=== PATIENT | female | born 1945 | race Caucasian/White ===

== ENCOUNTER 2018-08-11 12:13 | Observation (INO) | payer MEDICARE, OTHER ==
[2018-08-11] VITALS (21 sets, daily range): BP systolic 77–163; BP diastolic 50–86
[~2018-08-11] VITALS: Ht 160 cm; Wt 58.3 kg
--- NOTE | 2018-08-11 12:13 | NUR ---
ARRIVAL PATIENT TO ROOM 3, STATES THAT SHE WAS RIDING IN HER SISTER'S CAR AND SHE BLACKED OUT. PATIENT STATES SHE CHECKED HER BS AND IT WAS 73 AND DROPPING, SO SHE TOOK 2 ORAL GLUCOSES. PATIENT HAS BEEN HAVING HEAVINESS IN HER CHEST AND SOB ON AND OFF FOR A WEEK WELL A DULL ACHE IN HER LEFT ARM, PATIENT STATES THAT SHE HAS HAD A HEART CATH RECENTLY AND IT WAS NORMAL. ASSESSMENT COMPLETED, AWAITING MD PENNY, CONNECTED TO ALL MONITORS, LIFE INSURANCE UNDERWRITER IN PLACE.
[2018-08-11] MEDS ORDERED: NS 1000ML 1,000 ML IV STA (12:24)
--- NOTE | 2018-08-11 12:26 | PCM.EKG ---
[facility] Test Date: 2018-08-11 Test Time: 12:15:18 Pat Name: BRETT ORTIZ Department: Room: ICU5 Gender: F Distribution Coordinator: PRASAD : 1945 Requested By: RENY SMITH Order Number: [id number] Reading MD: Reny SMITH Measurements Intervals [place] Rate: 72 P: 83 CA: 144 QRS: 78 QRSD: 88 T: 65 QT: 430 QTc: 470 Interpretive Statements Normal sinus rhythm Right atrial enlargement Prolonged QT Abnormal ECG No previous ECG available for comparison Electronically Signed On 08-12-2018 16:39:34 CDT by Reny SMITH Please click the below link to view image of tracing.
[2018-08-11] MEDS ORDERED: ASPIRIN ONE (12:31)
[2018-08-11] MEDS ORDERED: NS 1000ML 1,000 ML ONE (12:31)
[2018-08-11 12:35] LABS: BASOPHIL % 0.7 % (0.0-0.2); EOSINOPHIL # 0.1 10^3/uL (0.0-0.2); EOSINOPHIL % 1.1 % (0.0-5.0); HEMOGLOBIN 11.5 g/dL (12.0-15.0); LYMPHOCYTES # 2.7 10^3/uL (1.0-4.8); LYMPHOCYTES % 43.4 % (24.0-44.0); MEAN CELL HGB 31.9 pg (26-34); MEAN CELL HGB CONCENTRATION 34.2 g/dL (33-37); MEAN CORP VOLUME 93.3 fL (78-100); MEAN PLATELET VOLUME 9.3 fL (7.8-11.0); MONOCYTES # 0.6 10^3/uL (0.3-0.8); MONOCYTES % 9.8 % (5.0-12.0); NEUTROPHIL # 2.7 10^3/uL (1.8-7.7); NEUTROPHILS % 44.8 % (41.0-85.0); RED CELL DISTRIBUTION WIDTH 11.4 % (11.5-14.5); WHITE BLOOD CELL 6.1 10^3/uL (4.5-11.0)
[2018-08-11] MEDS ORDERED: ASPIRIN PO STA (12:38)
--- NOTE | 2018-08-11 12:47 | NUR ---
CT PATIENT TO CT.
--- NOTE | 2018-08-11 12:53 | DIREP ---
PROCEDURE:CHEST 1 VIEW COMPARISON:None. INDICATIONS:Chest pain FINDINGS: LUNGS/PLEURA:No significant pulmonary parenchymal abnormalities. No effusions. Subtle patchy density at the right lung base is probably artifact of overlapping ribs. Bibasilar atelectasis. VASCULATURE:Normal. Unremarkable pulmonary vasculature. CARDIAC:Normal. No cardiac silhouette abnormality or cardiomegaly. MEDIASTINUM:Normal. No visible mass or adenopathy. BONES:Normal. No fracture or visible bony lesion. OTHER:Negative. CONCLUSION: Subtle patchy density at the right lung base is probably artifact of overlapping ribs. Bibasilar atelectasis. No other acute cardiopulmonary process. Dictated by: Washington Roche MD on 08/11/2018 at 12:51 PM
[2018-08-11 13:00] LABS: ALANINE AMINOTRANSFERASE(ML) 33 U/L (12-78); ALKALINE PHOSPHATASE 76 U/L (50-136); ASPARTATE AMINO TRANSFERASE 27 U/L (0-35); CALCIUM 9.5 mg/dL (8.4-10.5); CARBON DIOXIDE 27.8 mmol/L (20.0-32); GLUCOSE 84 mg/dL (70-110)
--- NOTE | 2018-08-11 13:01 | NUR ---
CT PATIENT BACK TO ROOM.
--- NOTE | 2018-08-11 13:07 | DIREP ---
PROCEDURE:CT HEAD OR BRAIN W/O CONTRAST COMPARISON:None. INDICATIONS:Syncope TECHNIQUE:CT images were created without intravenous contrast. FINDINGS: VENTRICLES: Unremarkable ventricular size and morphology for the patient's age. CEREBRUM: No apparent mass or mass effect. No acute intracranial hemorrhage or abnormal extra-axial fluid collections. No CT evidence to suggest acute large vascular territorial ischemia. CEREBELLUM: Unremarkable for the patient's age. BRAINSTEM: Normal. SKULL: Normal. SINUSES: No significant paranasal sinus disease OTHER: Intracranial vascular calcifications. CONCLUSION:No acute intracranial abnormality. Dictated by: Dirk Nielsen M.D. on 08/11/2018 at 01:01 PM
--- NOTE | 2018-08-11 13:10 | ER.PDOC ---
General Chief Complaint: Chest Pain-Cardiac Nature Stated Complaint: CHEST PAIN Time seen by MD: 12:50 Source: patient History of Present Illness Initial Comments Chest pain on and off for 1 week. Episode today started this morning and she took 3 nitroglycerine which made her pain better each time. She also passed out sitting in the car. Severity/Quality: moderate Radiation: no radiation Prior CP/Workup: Stress Test Nitro Today/Relief: No Nitro Taken Today, 0.4 mg x 3, Mild Relief Aspirin Today: 325 mg x 1, Provided By ED Associated Symptoms: shortness of breath Home Meds Reported Medications Insulin Lispro (HUMALOG) 100 Unit/1 Ml Cartridge, 100 UNIT SQ SLIDING SCALE, CARTRIDGE 08/11/18 Magnesium Oxide (Magnesium Oxide) 400 Mg Tablet, 400 MILLIGRAM PO DAILY24 08/11/18 Gabapentin (GABAPENTIN) 100 Mg Capsule, 1 CAP PO TID, #90 CAP 08/11/18 [place]-3 Acid Ethyl Esters (LOVAZA) 1 Gm Capsule, 2 CAP PO BID, #360 CAP 3 Refills 08/11/18 Aspirin (ASPIR 81) 81 Mg Tablet.dr, 1 TAB PO DAILY, #90 TAB 3 Refills 08/11/18 Lactobacillus Acidophilus (Probiotic) 1 Each Capsule, 1 EACH PO DAILY24, CAPSULE 08/11/18 Multivitamin (MULTI-VITAMIN DAILY) 1 Each Tablet, 1 EACH PO DAILY24, TABLET 08/11/18 Ascorbic Acid (VITAMIN C) 1,000 Mg Tablet, 1000 MG PO DAILY24, TABLET 08/11/18 Calcium Carbonate (CALCIUM) 500 Mg Tablet, 500 MG PO DAILY24, TABLET 08/11/18 Levothyroxine Sodium (LEVOTHYROXINE SODIUM) 100 Mcg Tablet, 1 TAB PO DAILY, #90 TAB 3 Refills 08/11/18 Lisinopril (LISINOPRIL) 10 Mg Tablet, 1 TAB PO DAILY, #90 TAB 3 Refills 08/11/18 Past Medical History Medical History: cancer, cardiac problems, diabetes, thyroid disease Surgical History: cancer surgery, cholecystectomy, hysterectomy, mastectomy Social History Smoking: non-smoker Alcohol Use: none Drug Use: none Constitutional: no symptoms reported EENTM: no symptoms reported Respiratory: see HPI Cardiovascular: see HPI Gastrointestinal: no symptoms reported Genitourinary: no symptoms reported All Other Systems: Reviewed and Negative Physical Exam General Appearance: No Apparent Distress, WD/WN Neck: Non-Tender, Full Range of Motion, Supple, Normal Inspection Respiratory: chest non-tender, lungs clear, normal breath sounds, no respiratory distress, no accessory muscle use Cardiovascular: Normal Peripheral Pulses, Regular Rate, Rhythm, No Edema, No Gallop, No JVD, No Murmur Gastrointestinal: Normal Bowel Sounds, No Organomegaly, No Pulsatile Mass, Non Tender, Soft Extremities: Normal Range of Motion, Non-Tender, Normal Inspection, No Pedal Edema, No Calf Tenderness, Normal Capillary Refill Neurologic/Psychiatric: lock expert II-XII NML as Tested, No Motor/Sensory Deficits, Alert, Normal Mood/Affect, Oriented x 3 Skin: Normal Color, Warm/Dry Lymphatic: No Adenopathy Results/Orders Results/Orders Orders - RENY SMITH MD Cbc With Auto Diff (08/11/18 12:24) Comprehensive Metabolic Panel (08/11/18 12:24) Creatine Kinase (08/11/18 12:24) Troponin I (08/11/18 12:24) Probnp B-Type Superintendent System Operation (08/11/18 12:24) PT (08/11/18 12:24) Partial Thromboplastin Time. (08/11/18 12:24) D-Dimer (08/11/18 12:24) Xr Chest 1v (08/11/18 12:24) Ekg-Routine (08/11/18 12:24) 0.9 % Sodium Chloride (Ns 1000ml) (08/11/18 12:24) 0.9 % Sodium Chloride (Ns 1000ml) (08/11/18 12:31) Aspirin (Aspirin) (08/11/18 12:31) Aspirin (Aspirin) (08/11/18 12:38) Ct Head Wo Contrast (08/11/18 12:38) Vital Signs Date Time Temp Pulse Resp B/P (MAP) Pulse Ox O2 Delivery O2 Flow Rate FiO2 08/11/18 12:42 98.4 61 18 77/50 (59) 98 Room Air 98.4 08/11/18 12:36 98.4 61 18 98.4 08/11/18 12:36 98.4 63 18 98 Room Air 98.4 Administered Medications Medications (Trade) Dose Ordered Sig/Dejah Route PRN Reason Start Time Stop Time Status Last Admin Dose Admin Sodium Chloride 1,000 ml @ 1,200 mls/hr Q50M STAT IV 08/11/18 12:24 08/11/18 13:13 08/11/18 12:36 1,200 MLS/HR Laboratory Tests Test 08/11/18 12:30 White Blood Count 6.1 10^3/uL (4.5-11.0) Red Blood Count 3.60 10^6/uL (4.00-5.20) L Hemoglobin 11.5 g/dL (12.0-15.0) L Hematocrit 33.6 % (36.0-46.0) L Mean Corpuscular Volume 93.3 fL (78-100) Mean Corpuscular Hemoglobin 31.9 pg (26-34) Mean Corpuscular Hemoglobin Concent 34.2 g/dL (33-37) Red Cell Distribution Width 11.4 % (11.5-14.5) L Platelet Count 220 10^3/uL (150-400) Mean Platelet Volume 9.3 fL (7.8-11.0) Neutrophils (%) (Auto) 44.8 % (41.0-85.0) Lymphocytes (%) (Auto) 43.4 % (24.0-44.0) Monocytes (%) (Auto) 9.8 % (5.0-12.0) Neutrophils # (Auto) 2.7 10^3/uL (1.8-7.7) Lymphocytes # (Auto) 2.7 10^3/uL (1.0-4.8) Monocytes # (Auto) 0.6 10^3/uL (0.3-0.8) Absolute Immature Granulocyte (auto 0.01 10^3 u/L (0-2) Eosinophils % 1.1 % (0.0-5.0) Basophils % 0.7 % (0.0-0.2) H Basophils # 0.0 10^3/uL (0.0-0.1) Eosinophil Count 0.1 10^3/uL (0.0-0.2) Prothrombin Time 9.8 SEC (9.8-11.9) Prothrombin Time INR (Non-Therap) 1.0 PTT 20.7 SEC (24.67-30.72) D-Dimer 0.31 mg/L (0.19-0.49) Sodium Level 133 mmol/L (132-145) Potassium Level 3.6 mmol/L (3.6-5.2) Chloride Level 96.0 mmol/L (96-109) Carbon Dioxide Level 27.8 mmol/L (20.0-32) Anion Gap 12.8 Blood Urea Nitrogen 18 mg/dL (7-18) Creatinine 1.09 mg/dL (0.59-1.40) Estimated GFR () 60.0 (>/=60) BUN/Creatinine Ratio 16.0 Glucose Level 84 mg/dL (70-110) Calcium Level 9.5 mg/dL (8.4-10.5) Total Bilirubin 0.3 mg/dL (0.2-1.0) Aspartate Amino Transferase (AST) 27 U/L (0-35) Alanine Aminotransferase (ALT) 33 U/L (12-78) Alkaline Phosphatase 76 U/L (50-136) Total Creatine Kinase 102 U/L (26-192) Troponin I < 0.02 ng/mL (0.00-0.05) Pro-B-Type Natriuretic Peptide 211 pg/mL (0-125) H Total Protein 7.1 g/dL (6.4-8.2) Albumin 3.6 g/dL (3.4-5.0) Globulin 3.5 Percent Immature Gran (Cell Imm) 0.20 % (0.00-0.50) EKG/XRAY/CT/US EKG: NSR XRAY: chest (No active disease) CT Comments: Nothing acute in tracranially Departure Time of Disposition: 14:30 Disposition: 09 ADMITTED INPATIENT Impression: Primary Impression: Chest pain Additional Impression: Syncope Condition: Stable Referrals: PCP,UNKNOWN (PCP) PRIMARY CARE PROVIDER Comments Admitted to Dr. Ortiz Duration or Time Spent with Pa: 60 mins Problem Qualifiers Primary Impression: Chest pain Chest pain type: unspecified Qualified Codes: R07.9 - Chest pain, unspecified Additional Impression: Syncope Syncope type: unspecified Qualified Codes: R55 - Syncope and collapse SARAH,RENY Salazar MD Aug 11, 2018 13:10
[2018-08-11] MEDS ORDERED: OMEG1CAP2 PO (13:21)
[2018-08-11] MEDS ORDERED: MULT-235 PO (13:21)
[2018-08-11] MEDS ORDERED: ASPI-484 PO (13:21)
[2018-08-11] MEDS ORDERED: LACT1CAP34 PO (13:21)
[2018-08-11] MEDS ORDERED: MAGN400T48 PO (13:21)
[2018-08-11] MEDS ORDERED: CALC500T92 PO (13:21)
[2018-08-11] MEDS ORDERED: ASCO10002 PO (13:21)
[2018-08-11] MEDS ORDERED: GABA100C7 PO (13:21)
[2018-08-11] MEDS ORDERED: LEVO100T5 PO (13:21)
[2018-08-11] MEDS ORDERED: LISI10TA2 PO (13:21)
[2018-08-11] MEDS ORDERED: INSU100C SQ (13:22)
--- NOTE | 2018-08-11 13:42 | NUR ---
UPDATE PATIENT IS TAKING ORAL GLUCOSE FOR A BS OF 69.
--- NOTE | 2018-08-11 14:08 | NUR ---
[facility] THIS NURSE CALLED FOR A ROOM, IS AWAITING SUPERVISOR RECORDS CHANGE TO CALL BACK WITH A ROOM NUMBER.
[2018-08-11] MEDS ORDERED: PROTONIX PO STA (15:53)
[2018-08-11] MEDS ORDERED: LOVENOX SQ ONE (16:34)
[2018-08-11] MEDS: LOVENOX SQ SCH ×2 (16:37→20:23)
--- NOTE | 2018-08-11 16:43 | HPH ---
ADMIT DATE: 08/11/2018 CHIEF COMPLAINT: Chest pain. HISTORY OF PRESENT ILLNESS: This was a 72-year-old female who has a longstanding history of diabetes mellitus type 2 for which she has been controlled with insulin pump and her glucose control has been excellent. The patient had chest pain, which was radiating to her right side of her neck and she checked with her primary care physician, who decided to get her an appointment with a vice president of development, but at the same time give her nitroglycerin tablets to help with any chest pain that may occur as needed. The patient apparently since Tuesday when she saw her primary care physician has been taking a lot of nitroglycerin and she has been feeling pretty weak and the patient came to the Emergency Room today after she had an episode of chest pain, which led her to take 3 tablets of nitroglycerin in a row. The patient's blood pressure was 70 systolic when she came to the Emergency Room, which responded nicely to the fluids immediately and the patient also felt much better afterward. The patient had a first set of cardiac enzymes, which was negative and her blood work was negative. The patient had a history of similar chest pain about 1-2 years ago and she was evaluated by vice president of development who did a stress test, which was negative and the patient was referred to my service for further evaluation and treatment. PAST MEDICAL HISTORY: Significant for: 1. DM type 2, requiring insulin. The patient is on insulin pump. 2. Hypothyroidism. 3. Hypertension. MEDICATIONS: The patient takes the following medications at home: 1. Ascorbic acid 1000 mg daily. 2. Aspirin 81 mg daily. 3. Calcium 500 mg daily. 4. Gabapentin 100 mg t.i.d. 5. Insulin lispro with the insulin pump. 6. Lactobacillus/probiotic one tablet daily. 7. Synthroid 100 mcg daily. 8. Lisinopril 10 mg daily. 9. Magnesium 400 mg daily. 10. Multivitamin 1 tablet daily. 11. [place] 3 two capsule p.o. b.i.d. ALLERGIES: No known drug allergy. FAMILY HISTORY: Reviewed and negative. SOCIAL HISTORY: The patient lives by herself. She does not smoke, drink, or use any illicit drugs. LABORATORY DATA: EKG, nonspecific ST-T changes. The head CT is negative. Chest x-ray is negative. Cardiac enzymes first set is negative. MANAGEMENT: We are going to admit the patient to telemetry in observation. We will monitor cardiac rhythm and follow lab results and treat accordingly. We will monitor closely. TERESA DOWD MD DR: AMIE/alexandra JOB# [id number]
--- NOTE | 2018-08-11 16:50 | NUR ---
REPORT RECEIVED REPORT, ASSUMED CARE FOR PATIENT AT THIS TIME.
[2018-08-11] MEDS ORDERED: ATIVAN PO STA (18:15)
[2018-08-11] MEDS ORDERED: DEXTROSE 50%-WATER SYRINGE IV PRN (18:30)
--- NOTE | 2018-08-11 18:34 | NUR ---
REPORT REPORT GIVEN TO ONCOMING SHIFT, RELINQUISHED CARE FOR PATIENT AT THIS TIME.
[2018-08-11] MEDS: NS 1000ML/KCL 20MEQ 1,000 ML IV SCH (18:50)
--- NOTE | 2018-08-11 19:05 | NUR ---
Pt on unit Pt arrived on unit via wheelchair. Received report and assumed care of pt. Pt denies chest pain or shortness of breath. Pt transferred from wheelchair to bed independently. Bed side monitor applied to pt. Oriented pt to room. Call light within reach. Family at bedside.
[2018-08-11] MEDS: HUMULIN R SQ SCH (19:30)
--- NOTE | 2018-08-11 19:30 | NUR ---
Heart cath Pt shaved and prepped for heart cath in AM.
--- NOTE | 2018-08-11 20:00 | NUR ---
Abbi Wilder called to notify this nurse to not give the patient the lovenox that was ordered. RBTO.
[2018-08-11] MEDS: NEURONTIN PO SCH (20:12)
[2018-08-11] MEDS: COREG PO SCH (20:12)
[2018-08-11] MEDS: RANEXA PO SCH (20:13)
--- NOTE | 2018-08-11 20:33 | NUR ---
Echo RT at bedside for echo
[2018-08-11] MEDS ORDERED: LIPITOR PO SCH (21:00)
[2018-08-12] VITALS (44 sets, daily range): BP systolic 93–160; BP diastolic 48–90
--- NOTE | 2018-08-12 02:26 | NUR ---
Early Mobility Activity level A. Pt will do all self care activities, sit up for all meals, and ambulate at least one time during this shift.
[2018-08-12] MEDS ORDERED: SYNTHROID ONE (04:15)
--- NOTE | 2018-08-12 04:22 | NUR ---
CHG wipes Pt cleaned with CHG wipes. Linens and gown changed. Pt denies pain or shortness of breath. Call light within reach.
[2018-08-12] MEDS ORDERED: NS 1000ML 1,000 ML ONE ×2 (06:17→06:23)
[2018-08-12] MEDS ORDERED: XYLOCAINE ONE (06:23)
[2018-08-12] MEDS ORDERED: VERSED ONE ×2 (06:23→08:09)
[2018-08-12] MEDS ORDERED: SUBLIMAZE ONE (06:23)
[2018-08-12] MEDS ORDERED: HEPARIN ONE (06:23)
[2018-08-12] MEDS ORDERED: SYNTHROID PO SCH (06:30)
--- NOTE | 2018-08-12 06:30 | NUR ---
RECEIVED REPORT AND PATIENT CARE ASSUMED.
[2018-08-12] MEDS: HUMULIN R SQ SCH (06:52)
[2018-08-12] MEDS ORDERED: PHENERGAN PO PRN (07:00)
[2018-08-12] MEDS ORDERED: VALIUM PO PRN (07:00)
--- NOTE | 2018-08-12 07:15 | NUR ---
ASSESSMENT/ACTIVITY LEVEL A PATIENT ABLE TO AMBULATED WITHOUT ASSISTANCE. PATIENT ASSESSMENT COMPLETED CHARTED. NO DISTRESS NOTED. PATIENT DENIES ANY PAIN AT THIS TIME OR DURING THE NIGHT. LUNG CTAB. HR REGULAR, TELEMONITOR READING SR 74. NO EDEMA NOTED. PEDAL PULSE MARKED 2+. CAP REFILL < 34 SEC. PATIENT INSTRUCTED ON CARDIAC CATHETERIZATION PROCESS AND WHAT TO EXPECTED AFTERWARDS SUCH FLAT TIME AND FREQUENT SITE CHECKS. PATIENT VOICED UNDERSTANDING. PATIENT ASSISTED OUT OF BED AND [place] [facility] [place]BY [place]IST. GAIT STEADY AND BALANCED. PATIENT ASSISTED BACK, HOB ELEVATED > 45 DEGREES.
[2018-08-12] MEDS: NS 1000ML/KCL 20MEQ 1,000 ML IV SCH (07:50)
--- NOTE | 2018-08-12 08:45 | NUR ---
BACK FROM CATH PATIENT ARRIVED VIA STRETCHER AWAKE, SLIGHT DROWSY. PATIENT ABLE TO COMMUNICATE CLEARLY, ABLE TO FOLLOW COMMANDS. PATIENT TRANSFERRED BACK INTO ICU BED WITH 3 PERSON ASSIST. PATIENT REINSTRUCTED ON FLAT TIME, KEEPING HEAD ON PILLOW AND KEEPING RIGHT LEG STRAIGHT. PATIENT AND DAUGHTER BOTH VOICED UNDERSTANDING. RECEIVED REPORT FROM Olvin SMITH RN. PATIENT CONNECTED TO BEDSIDE MINDRAY. HEART CATH SITE CHECK TO RIGHT FEMORAL SITE. NO BRUISING OR BLEEDING NOTED. SITE SOFT, NO HEMATOMA NOTED. DRESSING C/D/I. CALL LIGHT WITHIN EASY REACH.
[2018-08-12] MEDS ORDERED: ZESTRIL PO SCH (09:00)
[2018-08-12] MEDS: LOVENOX SQ SCH ×2 (09:00→10:31)
[2018-08-12] MEDS ORDERED: PLAVIX PO SCH (09:00)
[2018-08-12] MEDS ORDERED: PROTONIX PO SCH (09:00)
[2018-08-12] MEDS ORDERED: ASPIRIN EC PO SCH (09:00)
--- NOTE | 2018-08-12 09:20 | NUR ---
DR. PHELAN AT BEDSIDE DISCUSSING HEART CATH FINDINGS AND PLAN OF CARE. DAUGHTER PRESENT AT BEDSIDE. PATIENT AND DAUGHTER BOTH VOICED UNDERSTANDING DISCUSSION. PATIENT TO FOLLOW UP WITH HER FISHER SCALLOP.
--- NOTE | 2018-08-12 10:20 | NUR ---
DR. DOWD AT BEDSIDE DISCUSSING POC. PATIENT TO DISCHARGE TODAY.
--- NOTE | 2018-08-12 10:30 | NUR ---
FLAT TIME OVER HEART CATH SITE SOFT, NO BLEEDING OR BRUISING NOTED. DRESSING C/D/I. PATIENT SAT UP ON SIDE OF BED. CATH SITE CHECKED AGAIN NO BLEEDING OR HEMATOMA NOTED. PATIENT AMBULATED TO [facility]. NO DISTRESS NOTED. NO PAIN VOICED. PATENT URINATED CLEAR YELLOW URINE. PATIENT ASSISTED BACK INTO BED. CATH SITE CHECKED AGAIN, NO BLEEDING OR HEMATOMA NOTED. HOB ELEVATED > 45 DEGREES. DAUGHTER AND FAMILY FRIEND AT BEDSIDE. CALL LIGHT WITHIN EASY REACH.
[2018-08-12] MEDS ORDERED: LISI10TA2 PO (10:41)
[2018-08-12] MEDS ORDERED: CARV6.252 PO (10:41)
[2018-08-12] MEDS ORDERED: ATOR40TA PO (10:41)
[2018-08-12] MEDS: COREG PO SCH (10:43)
[2018-08-12] MEDS: RANEXA PO SCH (10:44)
[2018-08-12] MEDS: NEURONTIN PO SCH (10:44)
--- NOTE | 2018-08-12 11:40 | NUR ---
DISCHARGE INSTRUCTION GIVEN TO PATIENT AND DAUGHTER. BOTH VOICED UNDERSTANDING ALL INSTRUCTION GIVEN. HEART CATH SITE CHECK. NO BLEEDING OR HEMATOMA NOTED. IV ACCESS DISCONTINUED, IV CATH TIP INTACT. SITE COVERED WITH BAND AID. PATIENT DRESSED HERSELF. PATIENT TAKEN DOWN TO PRIVATE VEHICLE VIA WC. NO DISTRESS NOTED, ACCOMPANIED BY DAUGHTER AND FAMILY FRIEND.
--- NOTE | 2018-08-12 13:59 | CCRH ---
DATE OF SERVICE: 08/12/2018 PRECATHETERIZATION DIAGNOSES: Unstable angina in type 1 insulin-dependent diabetes mellitus, dyslipidemia, hypertension, assess for coronary artery disease. POSTCATHETERIZATION DIAGNOSES: Left main is a fair size vessel, type 3 LAD, which appears to be fully patent with a diagonal branch being patent. Circumflex is a good size vessel with a large obtuse marginal branch, fully patent. Right coronary artery is a large, dominant vessel with the posterior descending and posterolateral branches coming off the distal right coronary artery and appears to be fully patent. The left ventricle is normal in size with an LVEDP of about 15-20 mm with good wall contractility, ejection fraction of 50%. Aortic root cineangiography shows normal ascending aorta with great vessels of the neck being fully patent extracranially and runoff into the descending aorta was normal. Kidneys appeared to be normal. ANESTHESIA: 2% lidocaine. PREOPERATIVE MEDICATIONS: Phenergan 50 mg p.o., Valium 2.5 mg p.o., Versed 2 mg IV, fentanyl 25 mcg IV. ANTICOAGULATION: Heparin 2000 units intra-arterially, 2000 units in the flush solution, 1000 units in the dye solution. Dye is Omnipaque. Total amount is 100 mL. CATHETERS: JL4 6-Guamanian, JR4 6-Guamanian, and 6-Guamanian angled pigtail catheter. ARTERIAL TIME: 10 minutes. FLUOROSCOPY TIME: 1.7 minutes. PROCEDURES: Left heart catheterization, bilateral selective coronary arteriography, left ventriculography via right femoral Peter approach along with aortic root cineangiography. NARRATION OF PROCEDURE: Under local anesthesia, right femoral artery was punctured percutaneously by arterial needle, guide wire passed in right femoral artery, 6-Guamanian Cordis sheath introduced, side port of the sheath used for femoral arterial pressure monitoring. Sheath anchored with suture. Left Peter catheter introduced over guide wire into ascending aorta left coronary artery cannulated and left coronary angiography performed in GREENLAND[place] and TORRES projections with craniocaudal applications to visualize all branches. Left catheter exchanged for right coronary catheter and right coronary angiography performed in [place]EN[place] and TORRES. This catheter exchanged for 6-Guamanian pigtail catheter and catheter crossed the aortic valve and left ventricular LVEDP measured and LV gram performed in 30 degrees TORRES view with 30 mL Omnipaque dye and panning of descending aorta attempted. Patient tolerated procedure well. No complications of procedure. Angio-Seal deployed for hemostasis. HEMODYNAMICS: LVEDP is 15-20 mm, LV pressure is 158/15, femoral artery pressure 165/66 with a mean of 85. No gradient across the aorta. FINAL CONCLUSION: Normal coronary angiogram, normal LV function, elevated LVEDP. Normal aortic root cineangiography and great vessels of the neck extracranially. RECOMMENDATIONS: Ischemic heart disease based on microvascular ischemia is a consideration in a diabetic. We will ____ with beta blockers, OCTAVIA inhibitors, statins and aspirin. Followup myocardial perfusion imaging to see if she has got any perfusion defects. Laxmichand MD Grady DR: SAGAR/alexandra JOB# [id number]
--- NOTE | 2018-08-12 17:03 | CNH ---
DATE OF CONSULTATION: 08/11/2018 CHIEF COMPLAINT: Chest pain. HISTORY OF PRESENT ILLNESS: The patient is a 72-year-old white female who lives in [place], [place] and she for 1 week has been having chest heaviness, tightness on and off at rest with jaw pain, left arm pain, shortness of breath and saw her PCP 3 days ago and he gave her nitro and was going to make her an appointment with a washer and crusher tender and she came to visit her family in [place] today. On her way, she had pressure, heaviness, tightness, and jaw pain and she became diaphoretic and had left arm pain and she took 2 nitros. Blood pressure got low, came to the ER. EKG showed diffuse ST-T wave changes and subsequently, fluid challenge was given and admitted with a diagnosis of unstable angina for further evaluation and management. History of peptic ulcer disease, insulin-dependent diabetes for 20 years, hypertensive, dyslipidemic but not on any statins. ALLERGIES: None known. MEDICATIONS: She is on a sliding scale insulin coverage and ascorbic acid 1 g once a day, calcium carbonate 500 mg daily, lactobacillus 1 tablet daily, magnesium 400 mg once a day, multivitamin and omega-3 capsules, aspirin 81 mg once a day, gabapentin 100 mg 3 times a day, Levothroid 100 mcg once a day, lisinopril 10 mg once a day. PAST MEDICAL HISTORY: History of mastectomy bilaterally over 20 years ago and got chemotherapy, no radiation, hypertension, dyslipidemia, insulin-dependent diabetes for 20 years and she is lean, thin and never was on oral agents. SOCIAL HISTORY: Nonsmoker, no ethanol abuse. FAMILY HISTORY: Positive for heart problems. PHYSICAL EXAMINATION: GENERAL: She is alert, awake, oriented and 160 cm, 59 kilograms. BMI is 23.4. VITAL SIGNS: Initial blood pressure was low around 77/50, has come up to 163/86 with a pulse of 65, respirations 18 and 98 temperature, 99 saturation on room air. HEENT: Unremarkable. NECK: No JVD, no carotid bruits. Lean, thin, asthenically built. CHEST: Thin chest wall. LUNGS: Clear and bilateral mastectomy noted. HEART: S1, S2 normal. Accentuated heart sounds due to thin chest wall. ABDOMEN: Soft, nontender, no organomegaly. EXTREMITIES: Distal pulses fairly well felt. NEUROLOGIC: Intact. LABORATORY DATA: Showed a normal CBC and chemistry was normal. Troponin was 0.02. CPK was normal. Head CT was done, I do not know for what reason. It was unremarkable. Chest x-ray showed subtle patchy density in the right lung base, probably the artifacts and EKG shows regular sinus rhythm with increased voltage and diffuse ST-T wave changes. QT prolongation is noted, but not significant. It is about 430-440 milliseconds. IMPRESSION: Unstable angina, insulin-dependent diabetes mellitus, hypertension, dyslipidemia. PLAN: At this time, transfer to floor. Lovenox 1 mg/kg subQ b.i.d. along with Ranexa, Coreg. EKG, enzymes. Cardiac catheterization on 08/12/2018 at 8:00 a.m. Bartolome Rasmussen MD DR: SAGAR/alexandra JOB# [id number]
--- NOTE | 2018-08-12 19:10 | DSH ---
DATE OF DISCHARGE: 08/12/2018 DISCHARGE DIAGNOSES: 1. Chest pain, near syncope resulted in admission to rule out coronary artery disease. 2. Diabetes mellitus type 2 requiring insulin. The patient on insulin pump. HOSPITAL COURSE: This was a 72-year-old female visiting from out of town with her family when she developed chest pain that required nitroglycerin tablets and she kept taking these several pills of nitroglycerin, which resulted in a near syncopal episode. The patient was brought to the ER and she was found to be hypotensive and she was ruled out with the first set of cardiac enzymes for acute ND and then she was transferred to my service for further evaluation and treatment. The patient's cardiac enzymes remain negative and she was evaluated by Cardiology Dr. Rasmussen who did a cardiac catheterization that revealed no coronary artery disease and the patient probably had microvascular ischemia due to her longstanding diabetes and the patient was recommended to be placed on a small dose of beta nedra and OCTAVIA inhibitors with aspirin and atorvastatin and be discharged to be followed as an outpatient for further evaluation of her functional capacity with a stress test. Today, the patient is stable, no complaints. PHYSICAL EXAMINATION: VITAL SIGNS: Temperature 98, pulse 60, respiration 18, blood pressure 120/70. HEART: Regular rhythm. CHEST: Clear. ABDOMEN: Soft. EXTREMITIES: No cyanosis, clubbing or edema. The patient is going to be discharged home. Follow up with Dr. Rasmussen next week as recommended and also follow up with her primary care physician when she returns to her home. The patient would be discharged on the following medications: 1. Atorvastatin 80 mg once a day. 2. Carvedilol 6.25 mg b.i.d. 3. Lisinopril 5 mg daily. 4. Continue her home medications including the insulin pump. CONDITION ON DISCHARGE: Stable. The patient will be discharged home and followed by Cardiology and primary care physician. TERESA DOWD MD DR: AMIE/alexandra JOB# [id number]
--- NOTE | 2018-08-12 21:01 | ECHO ---
DATE OF SERVICE: 08/11/2018 ECHOCARDIOGRAM REPORT INDICATIONS: A 72-year-old female, unstable angina, hypertension, hypertensive heart disease and insulin-dependent diabetes type 2 with insulin pump. EKG, regular sinus rhythm with diffuse ST-T wave changes, assess LV function. FINDINGS: Mitral valve shows mitral annular calcification, mitral regurgitation with velocity of 3.5 meters with grade 1 diastolic dysfunction. Aorta is normal with normal aortic valve opening. Tricuspid valve shows mild tricuspid regurgitation, 1.8 meters velocity. The right ventricular systolic pressure 23 mm. Right ventricle is normal. Right atrium is normal. Left atrium is top normal size in 4 chamber longitudinal dimension. Left ventricle appears to be normal in size, around 4.16 cm end diastolic dimension, 3.06 cm end systolic dimension with mild inferior hypokinesis, more so of global hypokinesis, ejection fraction is 45% and normal end-diastolic volume, decreased LV compliance. Hence, grade 1 diastolic dysfunction. Normal LV size with normal wall thickness and mild hypokinesis globally with 45% ejection fraction and top normal left atrial size and mitral annular calcification is noted. Laxmichand MD Grady DR: SAGAR/alexandra JOB# [id number]
--- NOTE | 2018-08-13 00:07 | PNH ---
DATE: 08/12/2018 SUBJECTIVE: The patient has done well overnight and has had no chest pain. OBJECTIVE: VITALS SIGNS: She is afebrile. Vitals signs are stable with a pulse of 70, respiration 18, blood pressure 136/67, saturation 94. Intake and output shows she had 2100 mL out. LABORATORY DATA: Her repeat lab showed that three troponins are negative. ProBNP is 367, triglycerides 31, cholesterol 164, LDL 74, VLDL is normal, HDL is 83. PLAN: She is insulin-dependent diabetic. TSH is normal. She underwent coronary angiogram and the coronaries are normal. Elevated LVEDP, may have microvascular ischemia with insulin-dependent diabetes, although her lipids are excellent at the present time. She probably needs an EGD at some point in time and can be dismissed home on low dose statin, OCTAVIA inhibitor or ARB agents such as losartan 25 mg once a day, Coreg 3.125 mg twice a day, trial of nitroglycerin if she has chest pain and at some point in time can come to the office and we will do a myocardial perfusion imaging to see if she has unprovoked ischemic substrate in the context of normal coronary arteries to delineate microvascular ischemia. Thank you very much for this consultation. Bartolome Rasmussen MD DR: SAGAR/alexandra JOB# [id number]
== END 2018-08-12 11:40 | disposition home or self-care (01) ==
LOC: ER 12:13 → MS 14:36 → ICU 19:25 → EDPENDDISDT 08-12 11:40 → EDPENDDISTM 08-12 11:40
PROVIDERS: ADMIT Internal Medicine; ATTEND Internal Medicine
DX: R07.89 Other chest pain (principal); R55 Syncope and collapse; E11.9 Type 2 diabetes mellitus without complications; E78.5 Hyperlipidemia, unspecified; I10 Essential (primary) hypertension; E03.9 Hypothyroidism, unspecified; Z96.41 Presence of insulin pump (external) (internal); Z85.9 Personal history of malignant neoplasm, unspecified; Z90.710 Acquired absence of both cervix and uterus; Z79.4 Long term (current) use of insulin; Z90.10 Acquired absence of unspecified breast and nipple; Z87.11 Personal history of peptic ulcer disease
CPT/HCPCS: 36415 ×2; 70450; 71045; 80053; 80061; 82550; 82948; 83036; 83735; 83880 ×2; 84443; 84484 ×3; 85025; 85379; 85610; 85730; 93005; 93306; 93458; 93567; 96360; 96361 ×2; 96372; 99152; 99153; 99284; C1760; C1894 ×3; G0378 ×21; J1644 ×2; J1650; J2250 ×2; J3010; J7030 ×3; Q9967